=== PATIENT | female | born 1985 | race Caucasian/White ===

== ENCOUNTER 2018-01-06 15:01 | Emergency (ER) | payer OTHER ==
[~2018-01-06] VITALS: Ht 152.4 cm; Wt 55.5 kg
[2018-01-06 15:09] VITALS: BP 123/73; TEMP 99.1
[2018-01-06] MEDS ORDERED: MAGIC MOUTH PO ×3 (15:37→16:12)
[2018-01-06] MEDS ORDERED: ZOVIRAX400 MG PO ×3 (15:37→16:12)
[2018-01-06 15:57] VITALS: PULSE 91
== END 2018-01-06 15:57 | disposition home or self-care (01) ==
LOC: COL.ER 15:01
DX: B00.2 Herpesviral gingivostomatitis and pharyngotonsillitis (principal)